=== PATIENT | female | born 1935 | race Caucasian/White ===

== ENCOUNTER 2019-08-01 17:03 | Observation (INO) | payer MEDICARE ==
[~2019-08-01] VITALS: Ht 175.3 cm; Wt 83.9 kg
--- OUTSIDE RECORDS SUMMARY | 2019-08-01 17:06 | XMS REPORT | Summary of Care ---
Author Author Mena Heller M.A. Unknown Address Unknown Phone Unavailable Care Team Providers Care Diet Assistant Name Role Phone MURRAY N.P., CHESTER Unavailable Unavailable Arron Morrison, Mena Unavailable Unavailable CHONG N.P., LISA Unavailable Unavailable CHEYANNE N.P., PILY Unavailable Unavailable LYNDA PAREDES [place], GUEVARA Martinez Unavailable Unavailable SHEILA PAREDES [place], MAMTA Dupont Unavailable Unavailable LYNDA Tidwell, GUEVRAA Unavailable Unavailable TREVOR RAW STOCK DYEING MACHINE TENDER-C, CHESTER D Unavailable Unavailable ALLISON PAREDES [place], SUMANTH KERN Unavailable Unavailable CHEYANNE RAW STOCK DYEING MACHINE TENDER, PILY Unavailable Unavailable Unavailable Unavailable Functional Status Name Dates Details Functional status health issues are not documented Status: Name Dates Details Cognitive status health issues are not documented Status: Problems Name Dates Details Ataxic gait (781.2, R26.0) Status: Active Acute recurrent sinusitis (461.9, J01.91) Status: Active Influenza (487.1, J11.1) Status: Active Cervical neck pain with evidence of disc disease (722.91, M50.90) Status: Active Upper respiratory infection, acute (465.9, J06.9) Status: Active Allergic rhinitis (477.9, J30.9) Status: Active Elevated sed rate (elev SR) (790.1, R70.0) Status: Active CRP elevated (790.95, R79.82) Status: Active At low risk for fall (V49.89, Z91.81) Status: Active Depression screen (V79.0, Z13.31) Status: Active Encounter for mini-mental status examination Status: Active Visual disturbances (368.9, H53.9) Status: Active Grief counseling (V65.49, Z71.89) Status: Active Need for pneumococcal vaccination (V03.82, Z23) Status: Active Other intra-abdominal and pelvic swelling of mass or lump (789.39, R19.09) Status: Active Vaginal candidiasis (112.1, B37.3) Status: Active Symptoms of upper respiratory infection (URI) (786.09, R09.89) Status: Active Annual physical exam (V70.0, Z00.00) Status: Active Advance care planning (V65.49, Z71.89) Status: Active Urinary incontinence (788.30, R32) Status: Active Influenza vaccine needed (V04.81, Z23) Status: Active Abdominal pain, unspecified abdominal location (789.00, R10.9) Status: Active Vertigo (780.4, R42) Status: Active Unilateral inguinal hernia without obstruction or gangrene, recurrence not specified (550.90, K40.90) Status: Active Cervical spondylolysis (756.19, M43.02) Status: Active Cervical spondylosis (721.0, M47.812) Status: Active 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, M47.12) Status: Active Cervical radicular pain (723.4, M54.12) Status: Active Herniated cervical disc without myelopathy (722.0, M50.20) Status: Active Lumbar spondylosis (721.3, M47.816) Status: Active Lumbar radicular syndrome (724.4, M54.16) Status: Active MPDS (myofascial pain dysfunction syndrome) (729.1, M79.18) Status: Active Chronic pain of left knee (719.46, M25.562) Status: Active Bronchitis (490, J40) Status: Active Abnormal x-ray (793.99, R93.89) Status: Active Chigger bites (133.8, B88.0) Status: Active Skin lesion (709.9, L98.9) Status: Active Fatigue, unspecified type (780.79, R53.83) Status: Active Essential (primary) hypertension (401.9, I10) Status: Active Hypothyroidism (244.9, E03.9) Status: Active Polyarthritis (716.50, M13.0) Status: Active GERD without esophagitis (530.81, K21.9) Status: Active Vitamin B12 deficiency (266.2, E53.8) Status: Active Need for hepatitis C screening test (V73.89, Z11.59) Status: Active Post-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 Quantity: 30 CHONG N.PLISA Vieira * Start : 06-Oct-2012 Active Tylenol PM Extra Strength TABS TAKE 2 TABLET BEDTIME * Refills: 0 Active Losartan Potassium 50 MG Oral Tablet TAKE 1 TABLET BY MOUTH EVERY MORNING * Quantity: 90 Refills: 1 TREVOR Barraza.CHESTER Camacho * Start : 17-Oct-2014 Active Omeprazole 40 MG Oral Capsule Delayed Release TAKE 1 CAPSULE EVERY DAY, needs office visit * Quantity: 90 Refills: 1 TREVOR Barraza.CHESTER Camacho * Start : 14-Nov-2014 Active Levocetirizine Dihydrochloride 5 MG Oral Tablet TAKE 1 TABLET DAILY. * Quantity: 90 Refills: 1 TREVOR Barraza.CHESTER Camacho * Start : 22-Nov-2014 Active Nystop [id number] UNIT/GM External Powder APPLY 2-3 TIMES DAILY TO AFFECTED AREA(S). * Quantity: 1 Refills: 0 CHEYANNE Barraza.PPILY Vieira * Start : 03-Jun-2016 Active 60 GM Bottle Vitamin D3 125 MCG (5000 UT) Oral Tablet TAKE 1 TABLET DAILY- DR. DANIELS * Refills: 0 Active Meloxicam 7.5 MG Oral Tablet TAKE 1 TABLET DAILY NEEDED. * Quantity: 30 Refills: 0 TREVOR Barraza.CHESTER Camacho * Start : 19-Aug-2017 Active Triamcinolone Acetonide 0.1 % External Cream APPLY 2-3 TIMES DAILY TO AFFECTED AREA(S) NEEDED. * Quantity: 1 Refills: 0 CHEYANNE N.PPILY Vieira * Start : 07-Sep-2018 Active 80 GM Tube Cyanocobalamin 1000 MCG/ML Injection Solution 1 ml IM every weeks for 4 weeks, then monthly thereafter * Quantity: 1 Refills: 1 CHESTER MURRAY N.P. * Start : 24-Nov-2018 Active 10 ML Vial Allergies and Adverse Reactions Name Dates Details Penicillins (Allergy) Status: Active Past Medical History Name Dates Details History of Arthritis (V13.4) Status: Resolved History of essential hypertension (V12.59, Z86.79) Status: Resolved History of hyperlipidemia (V12.29, Z86.39) Status: Resolved History of hypothyroidism (V12.29, Z86.39) Status: Resolved History of Skin Cancer (V10.83) Status: Resolved Procedures Procedure Dates Details MA Bone Density DXA Dual Energy 89991 Date: 08-Mar-2019 History of Knee Surgery Completed History of Cataract Surgery Completed Immunization Name Dates Details Pneumococcal polysaccharide vaccine, 23 valent Lot #: [id number] on: 27-Oct-2012 Influenza on: Feb-2014 Fluzone High-Dose SUSP on: 25-Dec-2014 Fluzone Quadrivalent 0.5 ML Intramuscular Suspension Lot #: [id number] on: 24-Mar-2016 Prevnar 13 Intramuscular Suspension Lot #: [id number] on: 24-Mar-2016 Fluzone High-Dose 0.5 ML Intramuscular Suspension Prefilled Syringe Lot #: [id number] on: 30-Dec-2016 Influenza on: Nov-2018 Family History Name Dates Details Family history of lung cancer (V16.1, Z80.1) Status: Active Social History Name Dates Details - Status: Name Dates Details Former smoker Vital Signs Date Test Result Details [id number] BP Systolic 157 mm[Hg] Status: Comments: Location: LUE; Position: Sitting BP Diastolic 88 mm[Hg] Status: Comments: Location: LUE; Position: Sitting Height 69 in Status: Weight 187 lb Status: Body Mass Index Calculated 27.62 kg/m2 Status: Body Surface Area Calculated 2.01 m2 Status: Temperature 97.9 f Status: Comments: Method: Temporal Respiration Rate 16 /min Status: Heart Rate 87 /min Status: Results Date Description Value Details [id number] [QLH] HEPATITIS C ANTIBODY HEPATITIS C ANTIBODY NON-REACTIVE (Normal) Range: NON-REACTIVE SIGNAL TO CUT-OFF 0.30 (Normal) Range: <1.00 Comments: HCV antibody was non-reactive. There is no laboratory evidence of HCV infection. In most cases, no further action is required. However,if recent HCV exposure is suspected, a test for HCV RNA(test code 17675) is suggested. For additional information please refer tohttp://education.[employer]/faq/EMW60p5(This link is being provided for informational/educational purposes only.) 31-[id number]:18 [QLH] VITAMIN B12 VITAMIN B12 438 pg/ml (Normal) Range: 200-1100 85-[id number]:18 [QLH] TSH, 3RD GENERATION W/REFLEX TO FT4 TSH, 3RD GENERATION W/REFLEX TO FT4 6.38 {MIU/L} (Above high threshold) Range: 0.40-4.50 95-Pce-382585:18 [QLH] T4, FREE Comments: REPORT COMMENT:FASTING:NO T4, FREE 1.2 ng/dl (Normal) Range: 0.8-1.8 Plan of Care Name Dates Details Planned Observations Planned Goals not documented Planned Encounters Appointment; CHESTER MURRAY NP On: 06-Sep-2019 13:00 Instructions Name Dates Details Instructions not documented Encounters Appointment; CHESTER MURRAY NP Encounter Diagnosis: Problem not documented On: 28-Jul-2017 12:30 Appointment; ANDREW WONG M.D. Encounter Diagnosis: Problem not documented On: 04-Aug-2017 11:00 Appointment; ANDREW WONG M.D. Encounter Diagnosis: Problem not documented On: 25-Aug-2017 11:00 Appointment; CHESTER MURRAY NP Encounter Diagnosis: Problem not documented On: 20-Jan-2018 12:15 Appointment; MARYANN AGUILAR P.A. Encounter Diagnosis: Problem not documented On: 06-Apr-2018 14:00 Appointment; PILY EDWARD NP Encounter Diagnosis: Problem not documented On: 07-Sep-2018 11:00 Appointment; CHESTER MURRAY NP Encounter Diagnosis: Problem not documented On: 16-Nov-2018 11:00 Appointment; CHESTER MURRAY NP Encounter Diagnosis: Problem not documented On: 24-Nov-2018 12:00 Appointment; CHESTER MURRAY NP Encounter Diagnosis: Problem not documented On: 01-Mar-2019 11:00 Appointment; CHESTER MURRAY NP Encounter Diagnosis: Problem not documented On: 08-Mar-2019 12:45
--- OUTSIDE RECORDS SUMMARY | 2019-08-01 17:06 | XMS REPORT | Summary of Care ---
Author Author CHESTER MURRAY N.P. Unknown Address Unknown Phone Unavailable Care Team Providers Care Pay Agent Name Role Phone TREVOR Morgan, CHESTER Unavailable Unavailable Nicky Webster Unavailable Unavailable CHONG N.P., LISA Unavailable Unavailable CHEYANNE N.P., PILY Unavailable Unavailable LYNDA PAREDES [place], GUEVARA Martinez Unavailable Unavailable SHEILA PAREDES [place], MAMTA Dupont Unavailable Unavailable LYNDA Tidwell, GUEVARA Unavailable Unavailable TREVOR EVERETT-C, CHESTER Gtz Unavailable Unavailable ALLISON PAREDES [place], SUMANTH KERN Unavailable Unavailable CHEYANNE ROBLESP, PILY Unavailable Unavailable Unavailable Unavailable Functional Status [...] for pneumococcal vaccination (V03.82, Z23) Status: Active Vaginal candidiasis (112.1, B37.3) Status: Active Other intra-abdominal and pelvic swelling of mass or lump (789.39, R19.09) Status: Active Symptoms of upper respiratory infection [...] not specified (550.90, K40.90) Status: Active Cervical radicular pain (723.4, M54.12) Status: Active Herniated cervical disc without myelopathy (722.0, M50.20) Status: Active Lumbar spondylosis (721.3, M47.816) Status: Active Lumbar radicular syndrome (724.4, M54.16) Status: Active MPDS (myofascial pain dysfunction syndrome) (729.1, M79.18) Status: Active Cervical spondylosis (721.0, M47.812) Status: Active 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 Quantity: 30 CASTILLO N.PLISA Vieira * Start : 06-Oct-2012 Active Tylenol PM Extra Strength TABS TAKE 2 TABLET BEDTIME * Refills: 0 Active Losartan Potassium 50 MG Oral Tablet TAKE 1 TABLET BY MOUTH EVERY MORNING * Quantity: 90 Refills: 1 CHESTER MURRAY N.P. * Start : 17-Oct-2014 Active Omeprazole 40 MG Oral Capsule Delayed Release TAKE 1 CAPSULE EVERY DAY, needs office visit * Quantity: 90 Refills: 1 CHESTER MURRAY N.P. * Start : 14-Nov-2014 Active Vitamin D3 125 MCG (5000 UT) Oral Tablet TAKE 1 TABLET DAILY- DR. DANIELS * Refills: 0 Active Triamcinolone Acetonide 0.1 % External Cream APPLY 2-3 TIMES DAILY TO AFFECTED AREA(S) NEEDED. * Quantity: 1 Refills: 0 PILY EDWARD N.P. * Start : 07-Sep-2018 Active 80 GM Tube Nystop [id number] UNIT/GM External Powder APPLY 2-3 TIMES DAILY TO AFFECTED AREA(S). * Quantity: 1 Refills: 0 PILY EDWARD N.P. * Start : 03-Jun-2016 Active 60 GM Bottle Cyanocobalamin 1000 MCG/ML Injection Solution 1 ml IM every weeks for 4 weeks, then monthly thereafter * Quantity: 1 Refills: 1 CHESTER MURRAY N.P. * Start : 24-Nov-2018 Active 10 ML Vial Meloxicam 7.5 MG Oral Tablet TAKE 1 TABLET DAILY NEEDED. * Quantity: 30 Refills: 0 CHESTER MURRAY N.P. * Start : 19-Aug-2017 Active Levocetirizine Dihydrochloride 5 MG Oral Tablet TAKE 1 TABLET DAILY. * Quantity: 90 Refills: 1 CHESTER MURRAY N.P. * Start : 22-Nov-2014 Active Allergies and Adverse Reactions Name Dates Details Penicillins (Allergy) Status: Active Past Medical History Name Dates Details History of Arthritis (V13.4) Status: Resolved History of essential hypertension (V12.59, Z86.79) Status: Resolved History of hyperlipidemia (V12.29, Z86.39) Status: Resolved History of hypothyroidism (V12.29, Z86.39) Status: Resolved History of Skin Cancer (V10.83) Status: Resolved Procedures Procedure Dates Details History of Knee Surgery Completed History of Cataract Surgery Completed Immunization Name Dates Details Pneumococcal polysaccharide vaccine, 23 valent Lot #: [id number] on: 27-Oct-2012 Influenza on: Feb-2014 Fluzone High-Dose SUSP on: 25-Dec-2014 Fluzone Quadrivalent 0.5 ML Intramuscular Suspension Lot #: [id number] on: 24-Mar-2016 Prevnar 13 Intramuscular Suspension Lot #: [id number] on: 24-Mar-2016 Fluzone High-Dose 0.5 ML Intramuscular Suspension Prefilled Syringe Lot #: [id number] on: 30-Dec-2016 Influenza on: Nov-2018 Family History Name Dates Details Family history of lung cancer (V16.1, Z80.1) Status: Active Social History Name Dates Details - Status: Name Dates Details Former smoker Vital Signs Date Test Result Details No Known Vitals to report Results Date Description Value Details Results not documented Plan of Care Name Dates Details Planned [...]
--- OUTSIDE RECORDS SUMMARY | 2019-08-01 17:06 | XMS REPORT | Summary of Care ---
Author Author Talita Carranza M.A. Unknown Address Unknown Phone Unavailable Care Team Providers Care Flower Arranger Name Role Phone TREVOR N.P., CHESTER Unavailable Unavailable CHONG N.P., LISA Unavailable Unavailable CHEYANNE N.P., PILY Unavailable Unavailable LYNDA PAREDES [place], GUEVARA Martinez Unavailable Unavailable SHEILA PAREDES [place], MAMTA Dupont Unavailable Unavailable LYNDA Tidwell, GUEVARA Unavailable Unavailable TREVOR PARK KEEPER-C, CHESTER Gtz Unavailable Unavailable ALLISON PAREDES [place], SUMANTH KERN Unavailable Unavailable CHEYANNE PARK KEEPER, PILY Unavailable Unavailable Unavailable Unavailable Functional Status [...] : 07-Sep-2018 Active 80 GM Tube Nystop [id number] UNIT/GM External Powder APPLY 2-3 TIMES DAILY [...] Pneumococcal polysaccharide vaccine, 23 valent Lot #: [id number] on: 27-Oct-2012 Influenza on: Feb-2014 Fluzone High-Dose SUSP on: 25-Dec-2014 Fluzone Quadrivalent 0.5 ML Intramuscular Suspension Lot #: [id number] on: 24-Mar-2016 Prevnar 13 Intramuscular Suspension Lot #: [id number] on: 24-Mar-2016 Fluzone High-Dose 0.5 ML Intramuscular Suspension Prefilled Syringe Lot #: [id number] on: 30-Dec-2016 Influenza on: Nov-2018 Family History [...] Appointment; CHESTER MURRAY NP On: 06-Sep-2019 13:00 Interventions Provided Medication Changes* Omeprazole 40 MG Oral Capsule Delayed Release - Renew Instructions Name Dates Details Instructions not documented [...]
[2019-08-01 17:38] LABS: BASOPHILS % 0.6 % (0.0-1.0); EOSINOPHILS # (AUTO) 0.2 (0.0-0.4); EOSINOPHILS % 2.7 % (0.0-6.0); HEMATOCRIT 37.6 % (34.2-44.1); HEMOGLOBIN 12.5 g/dL (12.0-16.0); LYMPHOCYTES # (AUTO) 2.3 (1.0-3.2); MEAN CORPUSCULAR HEMOGLOBIN 29.3 pg (28-32); MEAN CORPUSCULAR HGB CONC 33.2 g/dL (31-35); MEAN CORPUSCULAR VOLUME 88.1 fL (81-99); MONOCYTES # (AUTO) 0.5 (0.2-0.8); MONOCYTES % 8.1 % (4.4-11.3); NEUTROPHILS # (AUTO) 3.5 (2.1-6.9); NEUTROPHILS % 53.3 % (38.7-80.0); PLATELET COUNT 222 x10e3/uL (140-360); RED BLOOD COUNT 4.27 x10e6/uL (3.6-5.1); RED CELL DISTRIBUTION WIDTH 13.7 % (11.7-14.4)
[2019-08-01 17:55] LABS: ALANINE AMINOTRANSFERASE 11 IU/L (0-55); ALBUMIN 4.2 g/dL (3.5-5.0); ALBUMIN/GLOBULIN RATIO 1.4 (0.8-2.0); ALKALINE PHOSPHATASE 62 IU/L (40-150); ANION GAP 15.6 mmol/L (8-16); BLOOD UREA NITROGEN 16 mg/dL (7-26); BUN/CREATININE RATIO 17 (6-25); CALCIUM 9.2 mg/dL (8.4-10.2); CARBON DIOXIDE 26 mmol/L (22-29); CHLORIDE 105 mmol/L (98-107); CREATINE KINASE 102 IU/L (29-168); CREATININE, SERUM 0.96 mg/dL (0.57-1.11); EST GLOMERULAR FILTRATION RATE 55 ML/MIN (60-); GLUCOSE 162 mg/dL (74-118); POTASSIUM 3.6 mmol/L (3.5-5.1); SODIUM 143 mmol/L (136-145)
--- NOTE | 2019-08-01 18:07 | Diagnostic Imaging Report ---
Radiographs of the right shoulder HISTORY: Pain COMPARISON: None available. FINDINGS: Bones: No acute displaced fracture. The humeral head approaches the undersurface of the acromion likely due to a chronic full-thickness rotator cuff tear. Joints: Scattered degenerative change. No osseous erosion. Soft tissues: The soft tissues appear unremarkable. IMPRESSION: Scattered degenerative change. No osseous erosion. Signed by: Dr. Josh Ivey M.D. on 08/01/2019 6:04 PM
--- NOTE | 2019-08-01 18:42 | Diagnostic Imaging Report ---
History: Fall, pain Comparison studies:None Technique: Axial images were obtained from the brain, orbits and cervical spine. Coronal and sagittal reconstructions obtained from the axial data. Intravenous contrast: None Dose modulation, iterative reconstruction, and/or weight based adjustment of the mA/kV was utilized to reduce the radiation dose to as low as reasonably achievable. Findings: Head CT: Scalp/skull: No abnormalities. No fractures, blastic or lytic lesions. Extra-axial spaces: No masses. No fluid collections. Brain sulci: Mildly prominent. Ventricles: Mild compensatory dilatation. No hydrocephalus. Parenchyma: Scattered hypodensities in the supratentorial white matter are moderate small vessel ischemic changes. No masses, hemorrhage, acute or chronic cortical vascular insults. Sellar/suprasellar region: No abnormalities. Craniocervical junction: Patent foramen magnum. No Chiari one malformation. Incidental findings: Atherosclerotic calcifications in the carotid siphons . Orbits CT: Soft tissues: No abnormalities.. Bones: No fractures or bony abnormalities. . Orbits: No acute abnormalities. Bilateral cataract surgery changes. Paranasal sinuses: Clear. Cervical spine CT: Fractures: No acute fracture. Soft tissues: No gross abnormalities. Atlantoaxial articulation: Degenerative changes without acute abnormality. Alignment: Straightening of the normal lordosis. No scoliosis. Cervicomedullary junction: No abnormalities. The foramen magnum is patent. Vertebrae: No infection or neoplasm. Degenerative changes: Decreased predental space with sclerotic changes calcified transverse ligament and osteophytosis. Hypertrophic changes of the left atlantoaxial joint. Degenerative foraminal narrowing, moderate right at C3-4, moderate right and severe left at C4-5 and C5-6, moderate bilateral at C6-7. Moderate at 6-7. Incidental findings: Atherosclerotic calcifications of the carotid bulbs. Prominent left palatine tonsil with obliterated left vallecula. Impression: Head CT: 1. No acute abnormality. Orbits CT: 1. No acute orbital abnormality. Cervical spine CT: 1. No acute cervical abnormalities. Degenerative changes as described above. 2. Cannot exclude ligament, spinal cord and or vascular abnormalities on the basis of this examination. 3. Prominent left palatine tonsil is incidentally seen, recommend nonemergent direct visualization. Signed by: DR Denis White M.D. on 08/01/2019 6:38 PM
[2019-08-01] MEDS ORDERED: FENTANYL CITRATE/PF 100MCG/2 ML INJ ONE (18:56)
--- OUTSIDE RECORDS SUMMARY | 2019-08-01 19:03 | XMS REPORT ---
Author Author [facility] Address Unknown Phone Unavailable Care Team Providers Care Metallographer Name Role Phone MELODY GARIBAY Unavailable Unavailable Problems This patient has no known problems. Allergies, Adverse Reactions, Alerts This patient has no known allergies or adverse reactions. Medications This patient has no known medications. Results Test Description Test Time Test Comments Text Results Atomic Results Result Comments CT ORBIT/SELLA/PF WO 2019-08-01 18:19:00 [place] [address] Patient Name: PUJA AVILA MR #: [id number] : 1935 Age/Sex: 84/F Req #: [id number] Adm Physician: Ordered by: AMANDA VEGA CLINICAL SALES CONSULTANT Report #: [id number] Location: ER Room/Bed: Procedure: [id number] CT/CT ORBIT/SELLA/PF WO Exam Date: 08/01/19 Exam Time: 1700 REPORT STATUS: Signed History: Fall, pain Comparison studies:None René hnique: Axial images were obtained from the brain, orbits and cervical spine. Coronal and sagittal reconstructions obtained from the axial data. Intravenous contrast: None Dose modulation, iterative reconstruction, and/or weight based adjustment of the mA/kV was utilized to reduce the radiation dose to as low as reasonably achievable. Findings: Head CT: Scalp/skull: No abnormalities. No fractures, blastic or lytic lesions. Extra-axial spaces: No masses. No fluid collections. Brain sulci: Mildly prominent. Ventricles: Mild compensatory dilatation. No hydr ocephalus. Parenchyma: Scattered hypodensities in the supratentorial white matter are moderate small vessel ischemic changes. No masses, hemorrhage, acute or chronic cortical vascular insults. Sellar/suprasellar region: No abnormalities. Craniocervical junction: Patent foramen magnum. No Chiari one malformation. Incidental findings: Atherosclerotic calcifications in the carotid siphons . Orbits CT: Soft tissues: No abnormalities.. Bones: No fractures or bony abnormalities. . Orbits: No acute abnormalities. Bilateral cataract surgery changes. Paranasal sinuses: Clear. Cervical spine CT: Fractures: No acute fracture. Soft tissues: No gross abnormalities. Atlantoaxial articulation: Degenerative changes without acute abnormality. Alignment: Straightening of the normal lordosis. No scoliosis. Cervicomedullary junction: No abnormalities. The foramen magnum is patent. Vertebrae: No infection or neoplasm. Degenerative changes: Decreased predental space with sclerotic changes calcified transverse ligament and osteophytosis. Hypertrophic changes of the left atlantoaxial joint. Degenerative foraminal narrowing, moderate right at C3-4, moderate right and severe left at C4-5 and C5-6, moderate bilateral at C6-7. Moderate at 6-7. Incidental findings: Atherosclerotic calcifications of the carotid bulbs. Prominent left palatine tonsil with obliterated left vallecula. Impression: Head CT: 1. No acute abnormality. Orbits CT: 1. No acute orbital abnormality. Cervical spine CT: 1. No acute cervical abnormalities. Degenerative changes as described above. 2. Cannot exclude ligament, spinal cord and or vascular abnormalities on the basis of this examination. 3. Prominent left palatine tonsil is incidentally seen, recommend nonemergent direct visualization. Signed by: DR Denis White M.D. on 08/01/2019 6:38 PM Dictated By: DENIS GONSALVES MD 37 Transcribed By: BLADIMIR on 08/01/191837 COPY TO: AMANDA VEGA NP CT CERVICAL SPINE WO 2019-08-01 18:19:[address], [place], [place] [address] Patient Name: PUJA AVILA MR #: [id number] : 1935 Age/Sex: 84/F Req #: [id number] Adm Physician: Ordered by: AMANDA VEGA NP Report #: [id number] Location: ER Room/Bed: Procedure: [id number] CT/CT CERVICAL SPINE WO Exam Date: 08/01/19 Exam Time: 1700 REPORT STATUS: Signed History: Fall, pain Comparison studies:None René hnique: Axial images were obtained from the brain, orbits and cervical spine. Coronal and sagittal reconstructions obtained from the axial data. Intravenous contrast: None Dose modulation, iterative reconstruction, and/or weight based adjustment of the mA/kV was utilized to reduce the radiation dose to as low as reasonably achievable. Findings: Head CT: Scalp/skull: No abnormalities. No fractures, blastic or lytic lesions. Extra-axial spaces: No masses. No fluid collections. Brain sulci: Mildly prominent. Ventricles: Mild compensatory dilatation. No hydr ocephalus. Parenchyma: Scattered hypodensities in the supratentorial white matter are moderate small vessel ischemic changes. No masses, hemorrhage, acute or chronic cortical vascular insults. Sellar/suprasellar region: No abnormalities. Craniocervical junction: Patent foramen magnum. No Chiari one malformation. Incidental findings: Atherosclerotic calcifications in the carotid siphons . Orbits CT: Soft tissues: No abnormalities.. Bones: No fractures or bony abnormalities. . Orbits: No acute abnormalities. Bilateral cataract surgery changes. Paranasal sinuses: Clear. Cervical spine CT: Fractures: No acute fracture. Soft tissues: No gross abnormalities. Atlantoaxial articulation: Degenerative changes without acute abnormality. Alignment: Straightening of the normal lordosis. No scoliosis. Cervicomedullary junction: No abnormalities. The foramen magnum is patent. Vertebrae: No infection or neoplasm. Degenerative changes: Decreased predental space with sclerotic changes calcified transverse ligament and osteophytosis. Hypertrophic changes of the left atlantoaxial joint. Degenerative foraminal narrowing, moderate right at C3-4, moderate right and severe left at C4-5 and C5-6, moderate bilateral at C6-7. Moderate at 6-7. Incidental findings: Atherosclerotic calcifications of the carotid bulbs. Prominent left palatine tonsil with obliterated left vallecula. Impression: Head CT: 1. No acute abnormality. Orbits CT: 1. No acute orbital abnormality. Cervical spine CT: 1. No acute cervical abnormalities. Degenerative changes as described above. 2. Cannot exclude ligament, spinal cord and or vascular abnormalities on the basis of this examination. 3. Prominent left palatine tonsil is incidentally seen, recommend nonemergent direct visualization. Signed by: DR Denis White M.D. on 08/01/2019 6:38 PM Dictated By: DENIS GONSALVES MD 37 Transcribed By: BLADIMIR on 08/01/191837 COPY TO: AMANDA VEGA CLINICAL SALES CONSULTANT CT BRAIN WO 2019-08-01 18:19:00 [place] [address] Patient Name: PUJA AVILA MR #: [id number] : 1935 Age/Sex: 84/F Req #: [id number] Adm Physician: Ordered by: AMANDA VEGA CLINICAL SALES CONSULTANT Report #: [id number] Location: ER Room/Bed: Procedure: [id number] CT/CT BRAIN WO Exam Date: 08/01/19 Exam Time: 1700 REPORT STATUS: Signed History: Fall, pain Comparison studies:None Technique: Axial images were obtained from the brain, orbits and cervical spine. Coronal and sagittal reconstructions obtained from the axial data. Intravenous contrast: None Dose modulation, iterative reconstruction, and/or weight based adjustment of the mA/kV was utilized to reduce the radiation dose to as low as reasonably achievable. Findings: Head CT: Scalp/skull: No abnormalities. No fractures, blastic or lytic lesions. Extra-axial spaces: No masses. No fluid collections. Brain sulci: Mildly prominent. Ventricles: Mild compensatory dilatation. No hydrocephalus. Parenchyma: Scattered hypodensities in the supratentorial white matter are moderate small vessel ischemic changes. No masses, hemorrhage, acute or chronic cortical vascular insults. Sellar/suprasellar region: No abnormalities. Craniocervical junction: Patent foramen magnum. No Chiari one malformation. Incidental findings: Atherosclerotic calcifications in the carotid siphons . Orbits CT: Soft tissues: No abnormalities.. Bones: No fractures or bony abnormalities. . Orbits: No acute abnormalities. Bilateral cataract surgery changes. Paranasal sinuses: Clear. Cervical spine CT: Fractures: No acute fracture. Soft tissues: No gross abnormalities. Atlantoaxial articulation: Degenerative changes without acute abnormality. Alignment: Straightening of the normal lordosis. No scoliosis. Cervicomedullary junction: No abnormalities. The foramen magnum is patent. Vertebrae: No infection or neoplasm. Degenerative changes: Decreased predental space with sclerotic changes calcified transverse ligament and osteophytosis. Hypertrophic changes of the left atlantoaxial joint. Degenerative foraminal narrowing, moderate right at C3-4, moderate right and severe left at C4-5 and C5-6, moderate bilateral at C6-7. Moderate at 6-7. Incidental findings: Atherosclerotic calcifications of the carotid bulbs. Prominent left palatine tonsil with obliterated left vallecula. Impression: Head CT: 1. No acute abnormality. Orbits CT: 1. No acute orbital abnormality. Cervical spine CT: 1. No acute cervical abnormalities. Degenerative changes as described above. 2. Cannot exclude ligament, spinal cord and or vascular abnormalities on the basis of this examination. 3. Prominent left palatine tonsil is incidentally seen, recommend nonemergent direct visualization. Signed by: DR Denis White M.D. on 08/01/2019 6:38 PM Dictated By: DENIS GONSALVES MD 37 Transcribed By: BLADIMIR on 08/01/191837 COPY TO: AMANDA VEGA NP SHOULDER RIGHT COMPLETE 2019-08-01 18:03:00 [place] [address] Patient Name: PUJA AVILA MR #: [id number] : 1935 Age/Sex: 84/F Req #: [id number] Adm Physician: Ordered by: AMANDA VEGA NP Report #: [id number] Location: ER Room/Bed: Procedure: [id number] DX/SHOULDER RIGHT COMPLETE Exam Date: 08/01/19 Exam Time: 1740 REPORT STATUS: Signed Radiographs of the right shoulder HISTORY: Pain COMPARISON: None available. FINDINGS: Bones: No acute displaced fracture. The humeral head approaches the undersurface of the acromion likely due to a chronic full-thickness rotator cuff tear. Joints: Scattered degenerative change. No osseous erosion. Soft tissues: The soft tissues appear unremarkable. IMPRESSION: Scattered degenerative change. No osseous erosion. Signed by: Dr. Josh Ivey M.D. on 08/01/2019 6:04 PM Dictated By: JOSH IVEY MD, MD 03 Transcribed By: BLADIMIR on 08/01/191803 COPY TO: AMANDA VEGA NP
[2019-08-01] MEDS ORDERED: LEVOTHYROXINE112 MCG (19:06)
[2019-08-01] MEDS ORDERED: ACETAMINOPHEN1 EACH PO (19:06)
[2019-08-01] MEDS ORDERED: LOSARTAN POTASS50 MG (19:06)
[2019-08-01] MEDS ORDERED: ONDANSETRON HCL INJ 2MG/ML 2ML 2 MG/ML VIAL IV PRN (20:15)
[2019-08-01] MEDS ORDERED: HYDRALAZINE HCL 20 MG/ML VIAL IV PRN (20:15)
[2019-08-01] MEDS ORDERED: ACETAMINOPHEN 325 MG TAB PO PRN (20:15)
[2019-08-01] MEDS ORDERED: ACETAMINOPHEN/CODEINE 300MG - 30MG TAB PO PRN (20:15)
[2019-08-01 21:00] VITALS: BP 169/90
[2019-08-02] VITALS: BP 148/73
[2019-08-02] MEDS ORDERED: LOSARTAN POTAS100 MG PO (00:09)
[2019-08-02] MEDS ORDERED: LEVOTHYROXINE112 MCG PO (00:09)
[2019-08-02 04:00] VITALS: BP 144/69
[2019-08-02 05:53] LABS: BASOPHILS % 0.4 % (0.0-1.0); EOSINOPHILS # (AUTO) 0.2 (0.0-0.4); HEMATOCRIT 36.3 % (34.2-44.1); HEMOGLOBIN 11.6 g/dL (12.0-16.0); LYMPHOCYTES # (AUTO) 3.3 (1.0-3.2); MEAN CORPUSCULAR HEMOGLOBIN 28.6 pg (28-32); MEAN CORPUSCULAR VOLUME 89.4 fL (81-99); MONOCYTES # (AUTO) 0.7 (0.2-0.8); MONOCYTES % 9.3 % (4.4-11.3); NEUTROPHILS # (AUTO) 3.1 (2.1-6.9); NEUTROPHILS % 41.9 % (38.7-80.0); PLATELET COUNT 207 x10e3/uL (140-360); RED BLOOD COUNT 4.06 x10e6/uL (3.6-5.1); RED CELL DISTRIBUTION WIDTH 13.7 % (11.7-14.4)
[2019-08-02 06:07] LABS: ALANINE AMINOTRANSFERASE 10 IU/L (0-55); ALBUMIN 3.8 g/dL (3.5-5.0); ALBUMIN/GLOBULIN RATIO 1.4 (0.8-2.0); ALKALINE PHOSPHATASE 65 IU/L (40-150); ANION GAP 10.3 mmol/L (8-16); BLOOD UREA NITROGEN 15 mg/dL (7-26); BUN/CREATININE RATIO 18 (6-25); CARBON DIOXIDE 30 mmol/L (22-29); CHLORIDE 108 mmol/L (98-107); CHOLESTEROL 196 MD/DL (0-199); CREATININE, SERUM 0.84 mg/dL (0.57-1.11); EST GLOMERULAR FILTRATION RATE > 60 ML/MIN (60-); GLUCOSE 86 mg/dL (74-118); HDL CHOLESTEROL 39 MG/DL (40-60); LDL CHOLESTEROL 116 MG/DL (60-130); POTASSIUM 4.3 mmol/L (3.5-5.1); SODIUM 144 mmol/L (136-145); TRIGLYCERIDES 205 MG/DL (0-149)
[2019-08-02 06:32] LABS: THYROID STIMULATING HORMONE 2.507 uIU/mL (0.350-4.940)
[2019-08-02] MEDS ORDERED: LEVOTHYROXINE SODIUM 112 MCG TAB ONE (06:39)
[2019-08-02 08:06] VITALS: BP 160/86
[2019-08-02 08:27] VITALS: BP 160/86
[2019-08-02] MEDS ORDERED: MECLIZINE HCL12.5 MG PO (08:57)
[2019-08-02] MEDS ORDERED: ULTRAM 50MG50 MG PO (08:57)
[2019-08-02] MEDS ORDERED: LOSARTAN POTASSIUM 100 MG TAB PO SCH (09:00)
--- NOTE | 2019-08-02 10:38 | NUR ---
Pt. expressed no spiritual or emotional concerns at this time. Operating Systems Programmer provided hospitality and information on how to reach hospitality ambassador, if needed. ML GARCIA Operating Systems Programmer Spiritual Care Department O: [phone]
[2019-08-02 11:49] VITALS: BP 152/84
--- NOTE | 2019-08-02 12:06 | Diagnostic Imaging Report ---
History: Fell, weakness. Comparison studies: CT head 08/01/2019 Technique: Sagittal T2; axial DWI, FLAIR, MPGR, T1, Coronal FLAIR. Intravenous contrast: None Findings: Scalp: Normal in signal . No masses . Bone marrow: Normal in signal intensity. Extra-axial: No masses, no fluid collections. Brain sulci: Mildly prominent. Ventricles: Mildly prominent . No hydrocephalus . Parenchyma: Scattered T2/flair hyperintensities of the periventricular and deep white matter No masses, hemorrhage, acute or chronic vascular insults. Suprasellar region: No abnormalities. Craniocervical junction: No abnormalities. Patent foramen magnum. No Chiari one malformation. Vessels: Normal flow-voids in the arteries and sinuses. Trace of fluid intensity signal at the left mastoid air cells. IMPRESSION: 1. No acute abnormalities. 2. Moderate chronic microvascular ischemic changes of the white matter. Mild diffuse volume loss. 3. Nonspecific mild inflammatory changes of the left mastoid air cells Signed by: DR Denis White M.D. on 08/02/2019 12:03 PM
--- NOTE | 2019-08-02 13:00 | NUR ---
JUANA Borjas notified of MRI results.
--- NOTE | 2019-08-02 13:30 | NUR ---
Carotid results were given to JUANA Borjas. Rolling walker was delivered to patient by social service technician
--- NOTE | 2019-08-02 14:00 | NUR ---
Discharge instructions were given to the patient, and prescriptions. Patient verbalized understanding. IV to the left forearm was removed with tip intact.
--- NOTE | 2019-08-02 14:18 | NUR ---
ORDER RECEIVED FOR HOME PT. MET W THE PT AT THE BEDSIDE. PT STATES SHE HAS NEVER HAD HOME HEALTH. PROVIDED CHOICE. CHOSE [facility] @ OFF: [phone] / FAX: [phone]. CHOICE LETTER SIGNED. COPY TO CHART REFERRAL FAXED TO [facility].
--- NOTE | 2019-08-02 19:11 | Discharge Summary ---
ADMISSION DIAGNOSES: 1. Fall versus syncope. 2. Hypothyroidism. 3. Hypertension. DISCHARGE DIAGNOSES: 1. Fall versus syncope. 2. Hypothyroidism. 3. Hypertension. 4. Rule out cerebrovascular accident. HISTORY: Hypertension and hypothyroidism. SURGICAL HISTORY: Abdominal hernia repair and right total knee replacement. FAMILY HISTORY: 1. The patient's great granddaughter has diabetes. 2. The patient's dad has cancer. 3. The patient's mom had a stroke. SOCIAL HISTORY: Noncontributory. The patient admits to quitting smoking over 20 years ago. HOSPITAL COURSE: An 84-year-old female admits status post fall on Thursday. She says she fell so quick that she does not remember if she got dizzy or she tripped. She was walking outside with her great granddaughter when she fell and she hit her right side of the body and her face on the concrete. On admission, EKG was normal sinus rhythm. Shoulder x-ray was negative. CT of the orbits, brain and C-spine were all negative. Echo showed an EF of 55% to 60%. TSH was within normal limits. A1c was within normal limits. MRI was negative and carotid Doppler showed no significant stenosis. Per Physical therapy evaluation, the patient can discharge home with PT and walker. She will follow up with primary care in 1 to 2 weeks. She was given prescription for pain and meclizine p.r.n. The patient understands instructions and agrees to plan. Vital signs stable and the patient is afebrile. Dictated by Suad Olivares NP MD SHYANN Dunbar/BREANN /[id number]
[2019-08-03] MEDS ORDERED: LEVOTHYROXINE SODIUM 112 MCG TAB PO SCH ×2 (06:00)
== END 2019-08-02 14:34 | disposition home or self-care (01) ==
LOC: ER 17:03 → ERHOLD 18:50 → MED/SURG 20:37
PROVIDERS: ADMIT Internal Medicine; ATTEND Internal Medicine
DX: E03.9 Hypothyroidism, unspecified (principal); I10 Essential (primary) hypertension; W19.XXXA Unspecified fall, initial encounter
CPT/HCPCS: 36415; 70450; 70480; 70551; 72125; 80053; 80061; 82550; 82553; 83036; 83735; 84443; 84484; 85025; 93005; 93306; 93880; 97139; 99285; G0378; J3010